=== PATIENT | male | born 1960 | race Caucasian/White ===

== ENCOUNTER 2020-05-20 17:22 | Inpatient (IN) | payer OTHER ==
[~2020-05-20] VITALS: Ht 182.9 cm; Wt 67.4 kg
[~2020-05-20 17:22] MED LIST: AMLODIPINE BESY10 MG PO; B-1100 MG PO; BENAZEPRIL HCL40 MG PO; ESCITALOPRAM OX10 MG PO; HYDROCHLOROTH12.5 MG PO; MAGNESIUM OXID400 M1 PO; MAGNESIUM200 MG PO; NICOTINE PATCH1 EAC2 TD; VITAMIN D350 MCG PO
[2020-05-20 18:24] LABS: HEMOGLOBIN 13.2 gm/dl (14.0-17.5); RED BLOOD COUNT 3.89 M/UL (4.20-5.50); WHITE BLOOD COUNT 5.4 K/UL (4.5-11.0)
[2020-05-20 18:53] LABS: BUN/CREATININE RATIO 7 (0-10)
[2020-05-21 04:17] LABS: HEMOGLOBIN 12.7 gm/dl (14.0-17.5); RED BLOOD COUNT 3.8 M/UL (4.20-5.50); WHITE BLOOD COUNT 4.4 K/UL (4.5-11.0)
[2020-05-21 04:40] LABS: BUN/CREATININE RATIO 10 (0-10)
--- NOTE | 2020-05-21 10:12 | NUR ---
ANNETTETN PROTOCOL CLARIFIED WITH DR. RONDON THIS AM, WELL NOTIFICATION OF UNAVAILABLE MEDS FROM PHARMACY.
[2020-05-22 05:47] LABS: RED BLOOD COUNT 3.56 M/UL (4.20-5.50); WHITE BLOOD COUNT 4.5 K/UL (4.5-11.0)
[2020-05-22 06:32] LABS: BUN/CREATININE RATIO 13 (0-10)
[2020-05-23 05:20] LABS: HEMOGLOBIN 12.3 gm/dl (14.0-17.5); RED BLOOD COUNT 3.61 M/UL (4.20-5.50)
[2020-05-23 05:36] LABS: BUN/CREATININE RATIO 17 (0-10)
[2020-05-24 06:55] LABS: HEMOGLOBIN 12.5 gm/dl (14.0-17.5); RED BLOOD COUNT 3.7 M/UL (4.20-5.50); WHITE BLOOD COUNT 6.1 K/UL (4.5-11.0)
[2020-05-24 07:25] LABS: BUN/CREATININE RATIO 20 (0-10)
[2020-05-25 02:26] LABS: HEMOGLOBIN 12.9 gm/dl (14.0-17.5); RED BLOOD COUNT 3.83 M/UL (4.20-5.50)
[2020-05-25 02:27] LABS: WHITE BLOOD COUNT 11.8 K/UL (4.5-11.0)
[2020-05-25 03:04] LABS: BUN/CREATININE RATIO 24 (0-10)
[2020-05-26 07:34] LABS: HEMOGLOBIN 13.2 gm/dl (14.0-17.5); RED BLOOD COUNT 3.97 M/UL (4.20-5.50)
[2020-05-26 08:02] LABS: BUN/CREATININE RATIO 34 (0-10)
[2020-05-27 02:14] LABS: HEMOGLOBIN 12.8 gm/dl (14.0-17.5); RED BLOOD COUNT 3.91 M/UL (4.20-5.50); WHITE BLOOD COUNT 4.9 K/UL (4.5-11.0)
[2020-05-27 02:46] LABS: BUN/CREATININE RATIO 44 (0-10)
[2020-05-28 02:32] LABS: HEMOGLOBIN 13.7 gm/dl (14.0-17.5); RED BLOOD COUNT 4.06 M/UL (4.20-5.50); WHITE BLOOD COUNT 6.1 K/UL (4.5-11.0)
[2020-05-28 02:52] LABS: BUN/CREATININE RATIO 43 (0-10)
[2020-05-29 03:31] LABS: HEMOGLOBIN 12.9 gm/dl (14.0-17.5); RED BLOOD COUNT 3.84 M/UL (4.20-5.50); WHITE BLOOD COUNT 6.1 K/UL (4.5-11.0)
[2020-05-29 03:48] LABS: BUN/CREATININE RATIO 39 (0-10)
[2020-05-30 06:04] LABS: HEMOGLOBIN 12.3 gm/dl (14.0-17.5); RED BLOOD COUNT 3.72 M/UL (4.20-5.50)
[2020-05-30 06:14] LABS: WHITE BLOOD COUNT 8.2 K/UL (4.5-11.0)
[2020-05-30 06:44] LABS: BUN/CREATININE RATIO 25 (0-10)
[2020-05-30 10:04] LABS: CRYPTOCOCCUS NEOFORMANS/GATTII Not Detected (Negative); CYTOMEGALOVIRUS Not Detected (Negative); ENTEROVIRUS Not Detected (Negative); ESCHERICHIA COLI K1 Not Detected (Negative); HAEMOPHILUS INFLUENZAE Not Detected (Negative); HERPES SIMPLEX VIRUS 1 Not Detected (Negative); HERPES SIMPLEX VIRUS 2 Not Detected (Negative); HUMAN HERPESVIRUS 6 Not Detected (Negative); HUMAN PARECHOVIRUS Not Detected (Negative); LISTERIA MONOCYTOGENES Not Detected (Negative); NEISERRIA MENINGITIDIS Not Detected (Negative); STREPTOCOCCUS AGALACTIAE Not Detected (Negative); STREPTOCOCCUS PNEUMONIAE Not Detected (Negative); VARICELLA ZOSTER VIRUS Not Detected (Negative)
[2020-05-30 12:02] LABS: GLUCOSE,CSF 75 mg/dL (50-80)
[2020-05-30 12:08] LABS: TOTAL PROTEIN,CSF 68 mg/dL (20-45)
[2020-05-30 12:12] LABS: WBC (AUTOMATED 1 10^3 (0-5)
[2020-05-30 12:13] LABS: WBC (AUTOMATED 1 10^3 (0-5)
--- NOTE | 2020-05-30 12:43 | NUR ---
829: DR OCAMPO VISITS, UPDATED ON PATIENTS NEUROLOGICAL ASSESSMENT FINDINGS, NEW ORDERS NOTED. 899: PATIENT TAKEN TO RADIOLOGY FOR REPEAT CT OF HEAD AND LUMBAR SPINAL TAP. SIGNED CONSENT AND SPOKE WITH DR STAPLES, RADIOLOGIST PRIOR TO PROCEDURE. TAKEN TO RADIOLOGY VIA BED. 951: PATIENT RETURNED TO ROOM VIA BED ESCORTED BY RADIOLOGY STAFF.
[2020-05-31 05:25] LABS: HEMOGLOBIN 12.3 gm/dl (14.0-17.5); RED BLOOD COUNT 3.83 M/UL (4.20-5.50); WHITE BLOOD COUNT 9.2 K/UL (4.5-11.0)
[2020-05-31 05:59] LABS: BUN/CREATININE RATIO 20 (0-10)
[2020-06-01 06:18] LABS: HEMOGLOBIN 11.9 gm/dl (14.0-17.5); RED BLOOD COUNT 3.56 M/UL (4.20-5.50); WHITE BLOOD COUNT 9.3 K/UL (4.5-11.0)
[2020-06-01 06:41] LABS: BUN/CREATININE RATIO 24 (0-10)
[2020-06-02 03:20] LABS: HEMOGLOBIN 13.6 gm/dl (14.0-17.5)
[2020-06-02 03:21] LABS: RED BLOOD COUNT 4.11 M/UL (4.20-5.50); WHITE BLOOD COUNT 13.6 K/UL (4.5-11.0)
[2020-06-02 04:11] LABS: BUN/CREATININE RATIO 21 (0-10)
--- NOTE | 2020-06-02 15:58 | NUR ---
0945: PATIENT WITH NOTED INCREASE IN WORK OF BREATHING, RR INCRESED FROM 18 - 20 TO 36 BPM. PATIENT CONTINUES TO HAVE A STRONG COUGH, HOWEVER, NO GAG REFLEX, WHICH REQUIRES ORAL SUCTIONING FREQUENTLY. NO FEVER. NOTED WBC INCREASED TO 13.6. DR GUSMAN NOTIFIED OF NEW FINDINGS AND NEW ORDERS RECEIVED. 1005: LABS NOTED WOTH NORMAL LACTIC ACID, PROCALICITONIN NOTED AT 0.2, REMAINS AFEBRILE. ABG DENOTED PO2 OF 61.6 - PLACED ON 2 LPM N/C. LUNG CLARK NOTED WITH INCREASED RHONCHI, ON THE LEFT, NO CHANGE IN BILAT LOWER BASES WITH FINE CRACKLES. AT BEDSIDE UPDATED WITH POC. 1300: DR GUSMAN VISITS, SPEAKS WITH , NEW ORDERS NOTED. 1400: COR-ERICA FEEDING TUBE REMOVED FROM RIGHT NARE, PER ORDER, PATIENT TOLERATED WELL. RALLEY BAG IVF'S DISCONTINUED, TELE AND PULSE OX DISCONTNUED. 1500: AGREES WITH MORPHINE AND FENTANYL PATCH TO FACILITATE COMFORT. FENTANYL PATCH PLACED ON RIGHT CHEST WALL, PATIENT TIMED AND DATED. 1600: PATIENT APPEARS TO BE RESTING COMFORTABLY, RR NOTED AT 16. REMAINS AT BEDSIDE, EMOTIONAL SUPPORT GIVEN.
== END 2020-06-03 18:18 | DRG 896 ==
LOC: ER1 17:22 → CDU 23:15 → MED SURG 4 23:15 → CDU 23:15 → MED SURG 4 23:15 → CDU 05-21 02:59 → MED SURG 4 05-21 19:30 → ER1 05-21 23:15 → CDU 05-21 23:15 → MED SURG 4 06-03 18:18
PROVIDERS: Family Medicine; Internal Medicine; Physician Assistant; ADMIT Internal Medicine
PROC: 009U3ZX Drainage of Spinal Canal, Percutaneous Approach, Diagnostic (ICD-10-PCS; principal; 2020-05-30)
PROC: B01BYZZ Fluoroscopy of Spinal Cord using Other Contrast (ICD-10-PCS; 2020-05-30)
DX: F10.239 Alcohol dependence with withdrawal, unspecified (principal); E43 Unspecified severe protein-calorie malnutrition; J18.9 Pneumonia, unspecified organism; G92 Toxic encephalopathy; R64 Cachexia; N39.0 Urinary tract infection, site not specified; K70.10 Alcoholic hepatitis without ascites; E87.6 Hypokalemia; Z20.822 Contact with and (suspected) exposure to COVID-19; I10 Essential (primary) hypertension; F41.9 Anxiety disorder, unspecified; F17.210 Nicotine dependence, cigarettes, uncomplicated; Z79.899 Other long term (current) drug therapy; G31.2 Degeneration of nervous system due to alcohol; E83.42 Hypomagnesemia; J32.0 Chronic maxillary sinusitis; G31.9 Degenerative disease of nervous system, unspecified; H10.9 Unspecified conjunctivitis; D69.6 Thrombocytopenia, unspecified; F32.9 Major depressive disorder, single episode, unspecified; Z66 Do not resuscitate
CPT/HCPCS: 36415; 36600; 70450; 70551; 71045; 71046; 74018; 80053; 80307; 81001; 82140; 82607; 82746; 82803; 82945; 83605; 83735; 84100; 84132; 84157; 84439; 84443; 85025; 85027; 85652; 86140; 87070; 87077; 87086; 87186; 87205; 87210; 87483; 89051; 93005; 94640; 94664; 94760; 95816; 96365; 96366; 96368; 96374; 96375; 96376; 97163; 97166; 97530-GP-CQ; 99285; G0378; G0480; J0696; J2060; J2270; J2405; J3411; J3475; J3480; J7030; U0002